=== PATIENT | female | born 1980 | race Caucasian/White ===

== ENCOUNTER 2023-10-03 13:57 | Emergency (ER) | payer SELFPAY ==
[2023-10-03 15:59] LABS: BASOPHILS ABSOLUTE AUTO 0.02 K/uL (0.00-0.20); BASOPHILS PERCENT AUTO 0.4 % (0.0-1.0); EOSINOPHILS ABSOLUTE AUTO 0.06 K/uL (0.00-0.45); EOSINOPHILS PERCENT AUTO 1.2 % (0.0-6.0); HEMATOCRIT 43.3 % (37.0-47.0); HEMOGLOBIN 14.7 g/dL (12.0-16.0); IMMATURE GRAN ABSOLUTE AUTO 0.02 K/uL (0.00-0.05); IMMATURE GRAN PERCENT AUTO 0.4 % (0.0-0.4); LYMPHOCYTES ABSOLUTE AUTO 1.83 K/uL (1.00-4.80); LYMPHOCYTES PERCENT AUTO 35.8 % (24.0-44.0); MEAN CORPUSCULAR HEMOGLOBIN 31.6 pg (28.0-32.0); MEAN CORPUSCULAR HGB CONC 33.9 g/dL (32.0-36.0); MEAN CORPUSCULAR VOLUME 93.1 fL (83.0-99.0); MEAN PLATELET VOLUME 10.6 fL (9.4-12.3); MONOCYTES ABSOLUTE AUTO 0.63 K/uL (0.00-0.80); MONOCYTES PERCENT AUTO 12.3 % (0.0-8.0); NEUTROPHILS ABSOLUTE AUTO 2.55 K/uL (1.80-7.70); NEUTROPHILS PERCENT AUTO 49.9 % (41.0-71.0); PLATELET COUNT,PLT 222 K/uL (150-400); RED BLOOD CELL COUNT 4.65 M/uL (4.10-5.30); WHITE BLOOD CELL COUNT,WBC 5.11 K/uL (3.9-11.3)
[2023-10-03] MEDS: Sodium Chloride 0.9% 1,000 ML IV ONE (16:19)
[2023-10-03] MEDS: Ondansetron 4 MG/2 ML SDV IVPUSH ONE (16:20)
[2023-10-03] MEDS: Morphine 4 MG/ML Syringe IVPUSH ONE ×3 (16:20→19:04)
[2023-10-03] MEDS: Sodium Chloride 0.9% 2.5 ML Syringe FLUSH PRN (16:21)
[2023-10-03] MEDS: Sodium Chloride 0.9% 10 ML Syringe FLUSH PRN (16:21)
[2023-10-03 16:52] LABS: ALANINE AMINOTRANSFERASE,ALT 16 IU/L (14-63); ALBUMIN 3.9 g/dL (3.4-5.0); ALKALINE PHOSPHATASE 104 U/L (46-116); ASPARTATE AMNIOTRANSFERASE,AST 26 IU/L (15-37); BILIRUBIN TOTAL 0.3 mg/dL (0.2-1.0); BLOOD UREA NITROGEN,BUN 16 mg/dL (7.0-18.0); CALCIUM 9.5 mg/dL (8.5-10.1); CARBON DIOXIDE,CO2 24.3 mmol/L (21.0-32.0); CHLORIDE,CL 103 mmol/L (98-107); CREATININE 0.9 mg/dL (0.6-1.0); EST CRCL DRUG DOSING (CG) 84.23 mL/min; GLUCOSE RANDOM 93 mg/dL (74-106); POTASSIUM,K 3.7 mmol/L (3.5-5.1); PROTEIN TOTAL,TP 8.5 g/dL (6.4-8.2); SODIUM,NA 140 mmol/L (136-145)
[2023-10-03 17:06] LABS: A/G RATIO 0.9 (0.9-1.6); ESTIMATED GFR 81 mL/min (>60); HCG QUANTITATIVE < 1.0 mIU/mL
[2023-10-03] MEDS: Iopamidol 755 MG/ML 500 ML Multipack Bottle IVPUSH STA (18:17)
[2023-10-03 19:37] LABS: APPEARANCE,URINE CLOUDY; BILIRUBIN,URINE NEGATIVE (NEGATIVE); GLUCOSE,URINE NEGATIVE (NEGATIVE); KETONES,URINE NEGATIVE (NEGATIVE); LEUKOCYTE ESTERASE,URINE NEGATIVE (NEGATIVE); NITRITE,URINE NEGATIVE (NEGATIVE); OCCULT BLOOD,URINE LARGE (NEGATIVE); PH,URINE 5.5 (5.0-8.0); PROTEIN,URINE NEGATIVE (NEGATIVE); UROBILINOGEN,URINE 0.2 EU/dL (<2.0)
[2023-10-03 19:45] LABS: COLOR,URINE YELLOW
[2023-10-03 19:46] LABS: AMORPHOUS SEDIMENT,URINE FEW (NEGATIVE); BACTERIA,URINE FEW (NEGATIVE); EPITHELIAL CELLS,URINE FEW (NONE-FEW); MUCUS,URINE OCCASIONAL (NONE-MOD); WBC,URINE 0-3 (0-5/HPF)
[2023-10-03] MEDS ORDERED: oxyCODONE 5 MG/5 ML Cup PO ONE (20:04)
[2023-10-03] MEDS: oxyCODONE 5 MG Tab PO STA (20:31)
[2023-10-03] MEDS: HYDROmorphone 1 MG/ML Syringe IVPUSH ONE (20:31)
== END 2023-10-03 20:44 | disposition home or self-care (01) ==
LOC: MW.ED 13:57
DX: M25.531 Pain in right wrist (principal); M25.571 Pain in right ankle and joints of right foot; Z88.5 Allergy status to narcotic agent; Z88.8 Allergy status to other drugs, medicaments and biological substances; Z79.899 Other long term (current) drug therapy; Z90.710 Acquired absence of both cervix and uterus; Y04.8XXA Assault by other bodily force, initial encounter
CPT/HCPCS: 29125; 36415; 70450; 70498; 73030; 73080; 73110; 73610; 74177; 80053; 81001; 84702; 85025; 96361; 96374; 96375; 96376; 99284; A9270; J1170; J2270; J2405; J3490; J7030; Q9967; 72125-26